=== PATIENT | female | born 1960 | race Caucasian/White ===

== ENCOUNTER 2022-09-20 08:25 | Emergency (ER) | payer MEDICAID, SELFPAY ==
[2022-09-20] VITALS (26 sets, daily range): BP systolic 82–108; BP diastolic 46–92; PULSE 63–158; RESP 12–14; TEMP 36.6; O2SAT 93–100; BMI 21.7
--- NOTE | 2022-09-20 08:52 | ED.ARRPALP ---
HPI - Arrhythmia/Palpitations General Chief Complaint: Arrhythmia/Palpitations Stated Complaint: Atrial fibrillation Time Seen by Provider: 09/20/22 08:45 History of Present Illness HPI narrative: This 62-year-old female comes in with atrial fibrillation with rapid ventricular response. She states that these symptoms started sometime through the night this last night. She does not report any chest pain. She did have a little bit of lightheadedness. She states that she had similar symptoms about a year ago and she converted back to normal sinus rhythm after receiving medication. She did not have cardioversion. She was prescribed Toprol which she has not taken except for this morning she did take it because she knew that her heart was going fast. Related Data Home Medications Medication Instructions Recorded Confirmed bupropion HCl 300 mg 24 hr tablet, mg PO 09/20/22 extended release fluoxetine 10 mg capsule mg 09/20/22 thyroid (pork) 90 mg tablet mg 09/20/22 ([place] Thyroid) Allergies Allergy/AdvReac Type Severity Reaction Status Date / Time polyethylene glycol Allergy Unknown Verified 09/20/22 08:43 Review of Systems Status of ROS: Reports: 10 or more systems reviewed and unremarkable except as noted in History and below Narrative: Constitutional: No fevers, no weight gain or loss. Eyes: No discharge. No vision changes. HENT: No congestion, no sore throat, no ear pain. Cardiovascular: No chest pain. Rapid irregular heart rate and rhythm. Respiratory: No shortness of breath, no wheezes, no cough. Gastrointestinal: No abdominal pain, no vomiting, no diarrhea. Genitourinary: No dysuria, no hematuria. Musculoskeletal: Normal range of motion. Skin: No rashes, no pruritis. Neurological: No dizziness, weakness, sensory change, speech change. Endo/Heme/Allergies: No bruising or bleeding. No polydipsia. Pysch: no suicidality, no anxiety, no insomnia. All other systems reviewed and are negative. Exam Narrative: Exam Narrative: Constitutional: Well-developed, well-nourished, no acute distress. HEENT: Normocephalic, atraumatic. Neck: Normal range of motion. Nontender. Supple. Heart: Irregular. Tachycardia. Intact distal pulses. Lungs: Clear to auscultation. No chest discomfort. No wheezes, rhonchi, or rales. Abdomen: Normal bowel sounds. Nontender. No rebound tenderness. Genitalia: Deferred. Back: No midline tenderness. Normal range of motion. Extremities: Normal range of motion. No injury. No pedal edema. Skin: Intact. No rash. Warm. No erythema or pallor. Neurologic: No altered sensation. No weakness. Alert and oriented. Psychiatric: No suicidality. No anxiety or depression. No insomnia. Nursing notes and vitals signs are reviewed. Const: Vital Signs, click to edit/add: Vital Signs - 24 hr 09/20/22 08:41 09/20/22 09:00 09/20/22 09:10 Temperature 97.8 F Pulse Rate 116 H Pulse Rate [Pulse Oximeter] 148 H 135 H Respiratory Rate 12 Blood Pressure Blood Pressure [Ri ght Upper Arm] 82/46 L 108/61 Pulse Oximetry 100 97 97 Oxygen Delivery Me thod Room Air Room Air 09/20/22 09:12 09/20/22 09:15 09/20/22 09:16 Temperature Pulse Rate 93 79 81 Pulse Rate [Pulse Oximeter] Respiratory Rate Blood Pressure 91/53 L 90/61 Blood Pressure [Ri ght Upper Arm] Pulse Oximetry 98 96 95 Oxygen Delivery Me thod 09/20/22 09:21 09/20/22 09:26 09/20/22 08:55 Temperature Pulse Rate 85 85 Pulse Rate [Pulse Oximeter] 144 H Respiratory Rate Blood Pressure 106/73 97/62 Blood Pressure [Ri ght Upper Arm] 100/78 Pulse Oximetry 95 95 98 Oxygen Delivery Me thod Room Air 09/20/22 08:40 09/20/22 09:27 09/20/22 09:30 Temperature Pulse Rate 95 91 Pulse Rate [Pulse Oximeter] 158 H Respiratory Rate 14 Blood Pressure Blood Pressure [Ri ght Upper Arm] 100/75 Pulse Oximetry 98 97 97 Oxygen Delivery Me thod Room Air 09/20/22 09:31 09/20/22 09:45 09/20/22 09:46 Temperature Pulse Rate 79 122 H 121 H Pulse Rate [Pulse Oximeter] Respiratory Rate Blood Pressure 96/62 98/76 Blood Pressure [Ri ght Upper Arm] Pulse Oximetry 93 96 96 Oxygen Delivery Me thod 09/20/22 09:47 09/20/22 10:00 09/20/22 10:01 Temperature Pulse Rate 84 97 108 H Pulse Rate [Pulse Oximeter] Respiratory Rate Blood Pressure 101/72 Blood Pressure [Ri ght Upper Arm] Pulse Oximetry 99 96 99 Oxygen Delivery Me thod 09/20/22 10:02 09/20/22 10:15 09/20/22 10:20 Temperature Pulse Rate 116 H 112 H 109 H Pulse Rate [Pulse Oximeter] Respiratory Rate Blood Pressure 102/63 Blood Pressure [Ri ght Upper Arm] Pulse Oximetry 96 99 96 Oxygen Delivery Me thod 09/20/22 10:23 09/20/22 10:30 09/20/22 10:31 Temperature Pulse Rate 120 H 64 66 Pulse Rate [Pulse Oximeter] Respiratory Rate Blood Pressure 108/92 H 104/62 Blood Pressure [Ri ght Upper Arm] Pulse Oximetry 99 98 98 Oxygen Delivery Me thod Course Vital Signs Vital signs: Initial Vital Signs Pulse Rate 158 H 09/20/22 08:40 Respiratory Rate 14 09/20/22 08:40 Blood Pressure 100/75 09/20/22 08:40 Blood Pressure Mean 83 09/20/22 08:40 Blood Pressure Position Supine 09/20/22 08:40 Pulse Oximetry 98 09/20/22 08:40 Oxygen Delivery Method 09/20/22 08:40 Vital Signs Pulse Rate 158 H 09/20/22 08:40 Respiratory Rate 14 09/20/22 08:40 Blood Pressure 100/75 09/20/22 08:40 Pulse Oximetry 98 09/20/22 08:40 Oxygen Delivery Method 09/20/22 08:40 Temperature 97.8 F 09/20/22 08:41 Pulse Rate 66 09/20/22 10:31 Respiratory Rate 12 09/20/22 09:00 Blood Pressure 104/62 09/20/22 10:31 Pulse Oximetry 98 09/20/22 10:31 Oxygen Delivery Method 09/20/22 09:00 MDM - Arrhythmia/Palpitations MDM Narrative Medical decision making narrative: This patient comes in with atrial fibrillation and rapid ventricular response. She is asymptomatic otherwise except for feeling some episodes of lightheadedness. An IV was established where she received a L of normal saline and 20 mg of diltiazem. This brought her rate down into the 80s but her rhythm continued as atrial fibrillation. As this medicine wore off her heart rate began to slowly increase up to around 120 beats per minute. As I was discussing options with her she spontaneously converted to normal sinus rhythm. Repeat EKG shows sinus rhythm with 1st degree AV block and a rate of 64 beats per minute. The patient has Toprol XL 25 mg prescribed for her but she states she has not taken it until this morning. She is okay to return home and I advised her to take this medicine as prescribed and return if recurrent or worsening symptoms happen. Lab Data Labs: Lab Results 09/20/22 09/20/22 09/20/22 Range/Units 08:48 08:48 08:51 WBC 6.43 (4.50-11.00) K/uL RBC 4.59 (4.00-5.20) m/uL Hgb 13.4 (12.0-16.0) gm/dL Hct 41.1 (33.0-51.0) % MCV 90 (80-100) fL MCH 29 (26-34) pg MCHC 33 (32-36) gm/dL RDW Coeff of [place] 12.8 (11.5-15.5) % Plt Count 321 (140-440) K/uL Neut % (Auto) 44.9 (42.0-72.0) % Lymph % (Auto) 37.2 (20-44) % [place] % (Auto) 8.2 (0.0-11.0) % Eos % (Auto) 8.9 H (0.0-7.0) % Baso % (Auto) 0.8 (0.0-3.0) % Neut # (Auto) 2.89 (1.7-7.0) K/uL Lymph # (Auto) 2.39 (0.90-2.90) K/uL [place] # (Auto) 0.50 (0.00-0.90) K/UL Eos # (Auto) 0.60 H (0.00-0.50) K/uL Baso # (Auto) 0.05 (0.00-0.30) K/uL Sodium 141 (135-149) mmol/L Potassium 3.8 (3.6-5.1) mmol/L Chloride 109 (96-114) mmol/L Carbon Dioxide 25 (20-32) mmol/L BUN 12 (7-30) mg/dL Creatinine 0.9 (0.5-1.5) mg/dL Estimated Creat Clear 58.09 Estimated GFR 72 ml/min Glucose 101 (60-115) mg/dL Calcium 9.0 (8.4-10.6) mg/dL Magnesium 1.9 (1.5-2.6) mg/dL POC Troponin I 0.00 L (0.01-0.04) ng/ml ECG Data Attestation: I personally reviewed and interpreted this ECG as follows: Interpretation: Atrial fibrillation with rapid ventricular response. Rate is 150 beats per minute. There are no specific ST or T-wave abnormalities. Discharge Plan Discharge Clinical Impression: Atrial fibrillation Patient Disposition: Home w/ Parent or Adult Condition: Improved Additional Instructions: Take Toprol as prescribed. Continue current plans otherwise. Return if recurrent symptoms happen. Prescriptions: No Action fluoxetine 10 mg capsule Label Comments: TAKE 1 CAPSULE (10 MG) BY MOUTH ONCE DAILY. bupropion HCl 300 mg tablet extended release 24 hr PO Label Comments: TAKE 1 TABLET (300 MG) BY MOUTH ONCE DAILY. thyroid (pork) [[place] Thyroid] 90 mg tablet Label Comments: TAKE 1 TABLET (90 MG) BY MOUTH ONCE DAILY. Follow Up/Referrals: Alyce Holt PA-C [Primary Care Provider] - Stand Alone Forms: Fit with Friends Info Instructions
[2022-09-20] MEDS: dilTIAZem 5 MG/ML inj 20 MG IVP (09:05)
[2022-09-20] MEDS: 0.9 % SODIUM CHLORIDE 1000 ml 1,000 ML IV (09:05)
[2022-09-20 09:10] LABS: Basophils Absolute Auto 0.05 K/uL (0.00-0.30); Basophils Percent Auto 0.8 % (0.0-3.0); Eosinophils Percent Auto 8.9 % (0.0-7.0); Hematocrit 41.1 % (33.0-51.0); Hemoglobin* 13.4 gm/dL (12.0-16.0); Lymphocytes Absolute Auto 2.39 K/uL (0.90-2.90); Lymphocytes Percent Auto 37.2 % (20-44); Mean Corpuscular HGB Conc 33 gm/dL (32-36); Mean Corpuscular Hemoglobin 29 pg (26-34); Mean Corpuscular Volume 90 fL (80-100); Monocytes Percent Auto 8.2 % (0.0-11.0); Neutrophils Absolute Auto 2.89 K/uL (1.7-7.0); Neutrophils Percent Auto 44.9 % (42.0-72.0); Platelet Count* 321 K/uL (140-440); RDW Coefficient of Variation % 12.8 % (11.5-15.5); Red Blood Count 4.59 m/uL (4.00-5.20); White Blood Count* 6.43 K/uL (4.50-11.00)
[2022-09-20 09:14] LABS: Slide Review Reflex No
[2022-09-20 09:27] LABS: Chloride* 109 mmol/L (96-114)
[2022-09-20 09:28] LABS: Potassium* 3.8 mmol/L (3.6-5.1); Sodium* 141 mmol/L (135-149)
[2022-09-20 09:30] LABS: Creatinine* 0.9 mg/dL (0.5-1.5); Est. Creatinine Clearance* 58.09; Estimated Glomerular Filt Rate 72 ml/min
[2022-09-20 09:31] LABS: Blood Urea Nitrogen* 12 mg/dL (7-30); Carbon Dioxide* 25 mmol/L (20-32); Glucose* 101 mg/dL (60-115); Magnesium* 1.9 mg/dL (1.5-2.6)
== END 2022-09-20 10:51 | disposition home or self-care (01) ==
PROVIDERS: Emergency Provider Emergency Medicine Emergency Medical Services; PCP Physician Assistant Medical
DX: I48.20 Chronic atrial fibrillation, unspecified (principal)
CPT/HCPCS: 36415; 80048; 83735; 84484; 85025; 93005; 94761; 99284; J7030

== ENCOUNTER 2024-05-26 08:08 | Outpatient (CLI) | payer MEDICAID, SELFPAY ==
--- OUTSIDE RECORDS SUMMARY | 2024-05-26 08:10 | XMS_ITS | Clinical Summary ---
Author Organization [facility] Address [place], [place] [address] Care Team Providers Care Conveyor Feeder Offbearer Name Role Phone Alyce Holt Primary Care Provider Allergies Active Allergy Reactions Criticality Noted Date Comments Polyethylene Glycol 3350 Rash High 08/30/2019 Penicillins Rash Low 08/30/2019 Medications Medication Sig Dispensed Refills Start Date End Date Status buPROPion (WELLBUTRIN XL) 300 mg Extended-Release tabletIndications:D epression, major, single episode, moderate (HC),Attention deficit hyperactivity disorder (ADHD), combined type Take 1 Tablet (300 mg) by mouth once daily. 90 Tablet 3 03/21/2024 Active FLUoxetine (PROZAC) 20 mg capsuleIndications: Depression, major, single episode, moderate (HC) Take 1 Capsule (20 mg) by mouth once daily in the morning. 90 Capsule 3 03/21/2024 Active thyroid ([place] Thyroid) 90 mg tabletIndications:H ashimoto's thyroiditis Take 1 Tablet (90 mg) by mouth once daily. 90 Each 3 03/21/2024 Active dextroamphetamine-a mphetamine (Adderall XR) 5 mg Extended-Release capsuleIndications: Attention deficit hyperactivity disorder (ADHD), combined type Take 1 Capsule (5 mg) by mouth once daily in the morning. 30 Capsule 05/20/2024 Active Sodium,Potassium,&M ag Sulfates (Suprep Bowel Prep Kit) 17.5-3.13-1.6 gramIndications:Scr een for colon cancer Take as per the instructions included in the kit. 1 Kit 05/10/2024 Active dextroamphetamine-a mphetamine (Adderall XR) 5 mg Extended-Release capsuleIndications: Attention deficit hyperactivity disorder (ADHD), combined type Take 1 Capsule (5 mg) by mouth once daily in the morning. 30 Capsule 04/20/2024 Active Problems Problem Noted Date Diagnosed Date Skin cancer 12/21/2023 Overview (02/14/2024): 12/16/23: right superior helical rim, BCC nodular and infiltrative: Mohs done 02/14/[address] Cedeño Depression, major, single episode, moderate 0 10/2023 Mild cognitive impairment 11/10/2023 New onset a-fib 10/07/2021 Resolved Problems Problem Noted Date Diagnosed Date Resolved Date Keratitis sicca 10/07/2021 06/01/2023 Encounters Date Type Department Care Team Description 05/09/2024 7:30 AM CDT Office Visit [facility] [address] [place] [address] Alyce Holt PA Preoperative Exam (colonoscopy) 05/09/2024 Travel 03/21/2024 8:10 AM CDT Office Visit [facility] [address] [place] [address] Alyce Holt PA Medication Management 03/21/[address] [facility] [address] [place] [address] Juan Loera MD Screening 03/21/2024 Travel from Last 3 Months Immunizations Name Administration Dates Next Due COVID-19 vaccine (Jhonatan-J& J) ELVIRA AVILA 11/01/2020 COVID-19 vaccine (Weotta-Bio NTech 30mcg/0.3mL) 12YO+ BIVALENT ELVIRA AVILA 06/01/2022 Influenza, IIV4 05/20/2023, 2,05/16/2021,04/23/20 20 Zoster (Shingrix-RZV, recombinant) 03/08/2019, Family History Medical History Relation Name Comments Good Health Brother Racing Mechanic Good Health Daughter Cancer Father bladder Lung cancer Father Cancer-breast Maternal Grandmother Cancer-ovarian Mother Transient ischemic attack Mother Cerebral palsy Sister adopted Relation Name Status Comments Brother Daughter Father Maternal Grandmother Mother Sister Social History Tobacco Use Types Packs/Day Years Used Date Smoking Tobacco: Never Smokeless Tobacco: Never Tobacco Cessation:Counseling Given: Yes Alcohol Use Standard Drinks/Week Comments Yes 0 (1 standard drink = 0.6 oz pur e alcohol) 4-5 glasses of wine per week PHQ-2 Answer Date Recorded PHQ-2 TOTAL SCORE 3 06/01/2023 Social Connections Answer Date Recorded Frequency of Communication with Friends and Fami ly 0 11/10/2023 Financial Resource Strain Answer Date R ecorded Difficulty of Paying Living Expenses 3 11/10/2023 Difficulty of Paying Living Expenses Not on file 11/10/2023 Food Insecurity Answer Date Recorded Worried About Running Out of Food in the Last Ye ar 1 11/10/2023 Transportation Needs Answer Date Record ed Lack of Transportation (Medical) 1 11/10/2023 Housing Stability Answer Date Recorded Unable to Pay for Housing in the Last Year 1 11/10/2023 Sex and Gender Information Value Date Recorded Sex Assigned at Female 06/03/2021 2:34 PM CDT Gender Identity Female 06/03/2021 2:34 PM CDT Sexual Orientation Not on file Obstetrics History Last Filed Vital Signs Vital Sign Reading Time Taken Comments Blood Pressure 92/57 05/09/2024 7:30 AM CDT Pulse 65 05/09/2024 7:30 AM CDT Temperature 36.9 ??C (98.5 ??F) 10/07/2021 10:[address] Respiratory Rate 17 12/09/2021 11:15 AM CDT Oxygen Saturation 97% 12/09/2021 11:15 AM CDT Inhaled Oxygen Concentration - - Weight 62.1 kg (137 lb) 05/09/2024 7:30 AM CDT Height 172.7 cm (5' 8) 12/09/2021 9:37 AM CDT Body Mass Index 20.83 12/09/2021 9:37 AM CDT Plan of Treatment Upcoming Encounters Date Type Department Care Team (Late st Contact Info) Description 05/26/2024 9:30 AM CDT Office Visit [facility] [address] [place] [phone] Juan Loera MD [address] [place] [address] Arrived Health Maintenance Due Date Last Done Comments Tdap 1970 Tetanus booster 1979 Colonoscopy through age 75 2004 05/26/2024 BMI (ht and wt on same day) for age 18+ 10/07/2022 10/07/2021, 04/29/2021, 12/31/2020, Additional history exists Influenza for age 50-64 04/09/2024 05/20/20, 05/11/2022, 05/16/2021, Additional history exists Depression screening for age 12+ 06/01/2024 06/01/2023, 05/06/2021, 11/22/2020, Additional history exists Mammogram for age 45-75 07/15/2024 07/15/20, 03/19/2022, 12/31/2020 Pap test for age 21-65 10/02/2024 10/02/2019, 2019 Lipids for age 45-75 03/21/2029 03/21/2024, 06/01/2023, 06/09/2022, Additional history exists Zoster (shingles) series for age 50+ Completed 03/08/2019, 12/22/2018 HIV for age 15-65 Completed 05/06/2021 Hepatitis C screening for age 18-79 Completed 06/09/2022 COVID-19 vaccine series Completed 04/11/20, 05/20/2023, 06/01/2022, Additional history exists Pneumococcal series for age 6-64 Aged Out No longer eligible based on patient's age to complete this topic Procedures Procedure Name Priority Date/Time Associated Diagnosis Comments COLONOSCOPY SCREENING Routine 05/26/2024 8:06 AM CDT Screening for colon cancer GLUCOSE, RANDOM Routine 03/21/2024 8:51 AM CDT Screening for diabetes mellitus LIPID PANEL W REFLEX MEASURED LDL Routine 03/21/2024 8:51 AM CDT Screening cholesterol level TSH Routine 03/21/2024 8:51 AM CDT Félix's thyroiditis XR MAMMO GIANLUCA BILAT SCREEN Routine 07/15/2023 9:28 AM MATE SHIP Encounter for screening mammogram for malignant neoplasm of breast ANTI HCV Routine 06/09/2022 8:53 AM CDT Need for hepatitis C screening test ANTI HIV 1/2 Routine 05/06/2021 2:35 PM CDT Mild cognitive impairment PHYSICAL SECURITY MANAGER THIN PREP PAP SCREEN IMAGED Routine 10/02/2019 10:49 AM MATE SHIP Pap smear for cervical cancer screening from Last 3 Months or Most Recently Relevant to Health Maintenance Results * (ABNORMAL) LIPID PANEL W REFLEX MEASURED LDL (03/21/2024 8:51 AM CDT) CHOLESTEROL,TOTAL 236(H) 100 - 199 mg/dL 03/21/2024 6:02 PM CDT [facility] Comment: Cholesterol, Total Reference Ranges Desirable <200 mg/dL Borderline 200-239 mg/dL High >=240 mg/dL TRIGLYCERIDES 103 <150 mg/dL 03/21/2024 6:02 PM CDT [facility] HDL CHOLESTEROL 53 >40 mg/dL 6:02 PM CDT [facility] NON-HDL CHOLESTEROL 183(H) <145 mg/dl 03/21/2024 6:02 PM CDT [facility] CHOL/HDL RATIO 4.45 <4.50 03/21/2024 6:02 PM CDT [facility] LDL CHOLESTEROL 162(H) <=130 mg/dL 03/21/2024 6:02 PM CDT [facility] VLDL CHOLESTEROL 21 <=30 mg/dL 03/21/2024 6:02 PM CDT [facility] PROVIDER ORDERED STATUS RANDOM 03/21/2024 6:02 PM CDT [facility] Blood BLOOD SPECIMEN / Unknown Venipuncture / Unknown 03/21/2024 8:51 AM CDT 03/21/2024 8:52 AM CDT [facility]ly[facility] POSADA [facility] [address] [place] [address], [place] * GLUCOSE, RANDOM (03/21/2024 8:51 AM CDT) GLUCOSE,RANDOM 74 70 - 139 mg/dL 03/21/2024 9:13 AM CDT [facility] Blood BLOOD SPECIMEN / Unknown Venipuncture / Unknown 03/21/2024 8:51 AM CDT 03/21/2024 8:52 AM CDT Alyce POSADA CHEMISTRY Performing Organization Address [facility] Co de Phone Number [facility] [address] [place] [address], [place] [phone] * TSH (03/21/2024 8:51 AM CDT) TSH 0.34 0.27 - 4.20 uIU/mL 03/21/2024 6:02 PM CDT [facility] Blood BLOOD SPECIMEN / Unknown Venipuncture / Unknown 03/21/2024 8:51 AM CDT 03/21/2024 8:52 AM CDT Narrative [facility] - 03/21/2024 6:02 PM CDT In Adults, TSH values between 5.00 and 10.00 uIU/ml do not necessarily indicate the presence of Hypothyroidism. Correlation with clinical findings such as presence of goiter and/or Thyroperoxidase (TPO) Antibody may be helpful. For more information please refer to INESSA 2004; 291: 228-238. Alyce POSADA CHEMISTRY [facility] [address] [place] [address], [place] * XR MAMMO GIANLUCA BILAT SCREEN (07/15/2023 9:28 AM MATE SHIP) Anatomical Region Laterality Modality BREASTS, Breast Left, Breast Right Bilateral Mammography Impressions 07/15/2023 3:37 PM MATE SHIP ??There is no radiographic evidence for malignancy. ??Recommend annual mammograms. MAMMOGRAM ASSESSMENT: ??ACR 1 Negative PATIENTS: You will also receive a letter with your examination results in an easy to read format. ??If you have questions about your results, please contact your referring provider. Narrative 07/15/2023 3:37 PM MATE SHIP For Patients: As a result of the Cures Act, medical imaging exams and procedure reports are released immediately into your electronic medical record. You may view this report before your referring provider. If you have questions, please contact your health care provider. XR MAMMO GIANLUCA BILAT SCREEN [[id number]] CLINICAL HISTORY: ??This is an asymptomatic 63 y.o. patient. INDICATION FOR EXAM: Mammogram Screening. TECHNIQUE: CC & MLO views were obtained. ??This study was evaluated with the assistance of Computer-Aided Detection. Breast Tomosynthesis was used in interpretation. COMPARISON FILM: Yes [facility] FINDINGS: ??The breasts have scattered areas of fibroglandular density. There are no dominant masses, suspicious micro calcifications or areas of architectural distortion. Alyce POSADA MAMMO * ANTI HCV (06/09/2022 8:53 AM CDT) HEPATITIS C ANTIBODY Non-React selene Non-React selene 06/09/2022 10:18 PM CDT [facility] Comment:Antibodies to HCV no t detected; does not exclude the possibility of exposure to HCV. Blood BLOOD SPECIMEN / Unknown Venipuncture / Unknown 06/09/2022 8:53 AM CDT 06/09/2022 8:57 AM CDT Alyce POSADA SEND OUTS [facility] [address] [place] [address], [place] * ANTI HIV 1/2 [83913.0] (05/06/2021 2:35 PM CDT) Pathologist [facility] HIV-1/HIV-2 ANTIBODY Non-Reacti ve Non-Reacti ve 05/06/2021 9:50 PM CDT [facility] Comment:HIV-1 p24 and HIV-1/ HIV-2 Ab not detected. Blood BLOOD SPECIMEN / Unknown Venipuncture / Unknown 05/06/2021 2:35 PM CDT 05/06/2021 2:35 PM CDT Garrison Arzate MD SEND OUTS [facility] [address] [place] [address], * PHYSICAL SECURITY MANAGER THIN PREP PAP SCREEN IMAGED (10/02/2019 10:49 AM MATE SHIP) [facility] Case Report Gynecologic Cytology Report ? Case: [id number] ? Authorizing Provider: ??Alyce Holt PA Collected: ? 10/02/2019 1049 ? Ordering Location: ? [facility] ?? Received: ?10/02/2019 1158 ? Clinic ? First Screen: ?Loren Neil ? Specimen: ?PHYSICAL SECURITY MANAGER ThinPrep Vial Screening, Cervical ? 10/10/2019 10:39 AM [facility] ENTRAL LABORATORY INTERPRETATION/ RESULT NEGATIVE FOR INTRAEPITHELIAL LESION OR MALIGNANCY (NIL) (none) 10/10/2019 10:39 AM [facility] IMEN ADEQUACY Satisfactory for evaluation Endocervical component present 10/10/2019 10:39 AM [facility] [employer] [facility] HPV REQUEST HPV and PAP 10/10/2019 10:39 AM [facility] Date of LMP unknown 10/10/2019 10:39 AM [facility] [employer] [facility] Last Pap Date about 2 years ago 10/2019 10:39 AM [facility] [employer] LABORATORY-C ENTRAL LABORATORY Last Pap Result NIL 0 10:39 AM [facility] Abnormal Pap or [place] Bx in last 5 years No 10/10/2019 10:39 AM [facility] ENTRAL LABORATORY Menstrual Status Postmenopausal 10/10/2019 10:39 AM [facility] [employer] [facility] [place] Bx Done Today No 10/10/2019 10:39 AM [facility] ENTRAL LABORATORY Additional Information None given 10/10/2019 10:39 AM [facility] ENTRAL LABORATORY Comment: Cytology is screened at [facility] [employer] [facility] Central Laboratory - [address] [address] and [facility] Laboratory - [address] [place] [address] [facility] Laboratory - [address] [place] [address] Interpreted at [facility] Central Laboratory - [address], [place] [address] Automated Review Successful 10/10/2019 10:39 AM MATE SHIP [employer] LABORATORY-C ENTRAL LABORATORY Comment:Specimen processed s uccessfully by automated personal care attendant device, SafetySk[employer] Imaging System, [employer] ANCILLARY TESTING PHYSICAL SECURITY MANAGER HPV Ordered, Please see separate report 10/10/2019 10:39 AM MATE SHIP [facility] LAB[facility] ENTRAL LABORATORY Note The pap test is a screening technique, not a diagnostic procedure. It is used primarily to screen for squamous cancers and precursor lesions. Published studies have shown that it is subject to both false negative and false positive results. The pap test should not be used as the sole means to diagnose or exclude pre-malignant and malignant lesions. 10/10/2019 10:39 AM MATE SHIP [facility] ENTRAL LABORATORY Other (Cervical) Non-Blood / Unknown 10/02/2019 10:49 AM MATE SHIP 10/02/2019 11:58 AM MATE SHIP Alyce POSADA PATHOLOGY/CYTOL OGY [facility] LAB[facility]AL LABORATORY [address] [place] [address], [place] from Last 3 Months or Most Recently Relevant to Health Maintenance Advance Directives * Full Code (Latest Code Status on File) Date Activated Date Inactivated Comments 12/09/2021 10:00 AM 12/10/2021 2:14 AM Question Answer Comments Code Status Discussion: Reviewed Preferences Care Teams Conveyor Feeder Offbearer Relationship Specialty Start Date End Date Alyce Holt PA [address] [place] [address] PCP - General Physician Typesetter Perforator Operator 10/02/19
== END 2024-05-26 08:09 | disposition home or self-care (01) ==
LOC: OP CLINIC 08:09
PROVIDERS: PCP Physician Assistant Medical; Visit Provider Internal Medicine Gastroenterology
DX: Z53.8 Procedure and treatment not carried out for other reasons (principal)